=== PATIENT | male | born 1945 | race Caucasian/White ===

== ENCOUNTER 2016-12-04 05:15 | Emergency (ER) | payer MEDICARE, BC ==
[~2016-12-04] VITALS: Ht 175.3 cm; Wt 112.5 kg
[2016-12-04 05:28] VITALS: Ht 175.3 cm; Wt 112.5 kg
[2016-12-04] MEDS ORDERED: TETRACAINE 0.5% 4 ML OPH LEFT EYE STA (05:41)
[2016-12-04] MEDS ORDERED: FLUORESCEIN STRIP ONE (05:43)
--- NOTE | 2016-12-04 06:39 | ERD ---
ER Documentation Chief Complaint Date/Time DATE: 12/04/16 TIME: 06:39 Chief Complaint Pt reports "Something flew in my (L) eye last night" HPI 71-year-old male with a history of untreated hypertension presenting with left eye pain. He was crushing peanuts into a salad yesterday when he felt 1 of the pieces fly into his left eye. He did copious irrigation at home but continues to feel some eye pain and foreign body sensation. He denies any pain with ocular movement. Minimal blurry vision. No photophobia. He denies any headache, chest pain, shortness of breath, focal weakness or numbness. He was noted to have high blood pressure, but states it is because of the pain that his blood pressure is so elevated. ROS All systems reviewed and are negative except as per history of present illness. Medications Home Meds No Active Prescriptions or Reported Meds Allergies Allergies: Coded Allergies: No Known Drug Allergy (Unverified Allergy, Unknown, 12/04/16) PMhx/Soc History of Surgery: No Anesthesia Reaction: No Hx Neurological Disorder: No Hx Respiratory Disorders: No Hx Cardiac Disorders: No Hx Psychiatric Problems: No Hx Miscellaneous Medical Probl: Yes (Hypertension) Hx Alcohol Use: No Hx Substance Use: No Hx Tobacco Use: No FmHx Family History: No diabetes Physical Exam Vitals Vital Signs Date Time Temp Pulse Resp B/P Pulse Ox O2 Delivery O2 Flow Rate FiO2 12/04/16 05:28 98.3 80 18 261/139 95 Physical Exam Const: Well-appearing, no apparent distress Head: Atraumatic Eyes: PERRLA, EOMI, no proptosis. right eye normal. Left eye with clear tearing and conjunctival mild injection. Left eye Exam: Lac ducts/glands: No swelling Lids w/ evertion: Normal, no foreign body Conj/Omega: Injected, negative Fluorescein/Deo's Anterior Chamber: Clear Retina exam: No obvious abnormality ENT: Normal External Ears, Nose and Mouth. Neck: Full range of motion..~ No meningismus. Resp: Clear to auscultation bilaterally Cardio: Regular rate and rhythm, no murmurs Abd: Soft, non tender, non distended. Normal bowel sounds Skin: No petechiae or rashes Back: No midline or flank tenderness Ext: No cyanosis, or edema Neur: Awake and alert and oriented 3, cranial nerves intact, strength and sensations intact in all 4 extremities Psych: Normal Mood and Affect Results 24 hrs Current Medications Medications (Trade) Dose Ordered Sig/Latoya Route PRN Reason Start Time Stop Time Status Last Admin Dose Admin Tetracaine HCl (Tetracaine 0.5% Steri-Unit Jaimee) 4 drop NOW STAT LEFT EYE 12/04/16 05:41 12/04/16 05:42 DC 12/04/16 05:56 Procedures/MDM Labs were ordered but the patient refused to have any labs done. He did not want his blood pressure checked again. He is convinced that his blood pressure is elevated due to his pain. However he is well-appearing on exam and I doubt hypertensive emergency. With regard to his left eye, there is no evidence of corneal abrasion, ulcer, bacterial conjunctivitis, or foreign body. I do not suspect acute glaucoma or endophthalmitis. He copiously irrigated his eye at home so I do not think it is necessary at this time. He had relief of his pain with the tetracaine eyedrops. Home care for his eye was discussed. He was encouraged to follow-up with an preprint analyst or in the ED if his pain worsens or he develops any new symptoms. Departure Diagnosis: Primary Impression: Acute left eye pain Additional Impression: Asymptomatic hypertension Condition: Stable EKMOHIT BRAVO MD Dec 04, 2016 06:39
== END 2016-12-04 07:16 | disposition home or self-care (01) ==
LOC: E/R 05:15
DX: H57.12 Ocular pain, left eye (principal); I10 Essential (primary) hypertension; R40.2142 Coma scale, eyes open, spontaneous, at arrival to emergency department; R40.2252 Coma scale, best verbal response, oriented, at arrival to emergency department; R40.2362 Coma scale, best motor response, obeys commands, at arrival to emergency department
CPT/HCPCS: 99282

== ENCOUNTER 2016-12-29 13:56 | Emergency (ER) | payer MEDICARE, BC ==
[~2016-12-29] VITALS: Ht 175.3 cm; Wt 111.0 kg
[2016-12-29 14:00] VITALS: Ht 175.3 cm; Wt 111.0 kg
[2016-12-29] MEDS ORDERED: NEBIVOLOL 5 MG TAB PO STA (14:25)
--- NOTE | 2016-12-29 15:34 | RADRPT ---
PROCEDURE: US Lower extremity Venous. CLINICAL INDICATION: Bilateral lower extremity edema , pain TECHNIQUE: Multiple sonographic images of the bilateral lower extremity deep venous system was obt ained utilizing grayscale, color-flow, compressive sonography and doppler imaging with augmentation. The images were reviewed on a PACS workstation. COMPARISON: None. FINDINGS: There is normal compressibility and flow within the bilateral common femoral, femoral , posterior ti bial and popliteal veins. RPTAT: AA IMPRESSION: No sonographic evidence for deep venous thrombosis. .Juanpablo Robison MD, MD Date Time Electronically viewed and signed by .Juanpablo Robison MD, on 12/29/2016 15:34 .S/
--- NOTE | 2016-12-29 15:42 | ERD ---
ER Documentation Chief Complaint Date/Time DATE: 12/29/16 TIME: 14:53 Chief Complaint right hip pain since tuesday, no trauma HPI 71 year old male with history of hypertension presents complaining of right hip pain that started suddenly on Tuesday. Patient states pain is 0/10 and when he bears weight it is 8/10. Patient states he was seen at his PCP this morning and was diagnosed with HTN and given prescription for Bystolic 10mg but he has not picked up the prescription yet. He was referred here for bilateral venous ultrasound to rule out DVT, patient has bilateral swelling. No lower extremity pain. Denies fevers, shortness of breath, chest pain, headache. ROS All systems reviewed and are negative except as per history of present illness. Medications Home Meds No Active Prescriptions or Reported Meds Allergies Allergies: Coded Allergies: No Known Drug Allergy (Unverified Allergy, Unknown, 12/29/16) PMhx/Soc Medical and Surgical Hx: pt denies Surgical Hx, Unable to obtain History of Surgery: No Anesthesia Reaction: No Hx Neurological Disorder: No Hx Respiratory Disorders: No Hx Cardiac Disorders: No Hx Psychiatric Problems: No Hx Miscellaneous Medical Probl: Yes (Hypertension) Hx Alcohol Use: No Hx Substance Use: No Hx Tobacco Use: No Smoking Status: Never smoker Physical Exam Vitals Vital Signs Date Time Temp Pulse Resp B/P Pulse Ox O2 Delivery O2 Flow Rate FiO2 12/29/16 17:43 98.1 84 20 180/140 99 12/29/16 14:00 98.1 100 20 208/111 99 Physical Exam Const: WD/WN, NAD Head: Atraumatic Eyes: Normal Conjunctiva ENT: Normal External Ears, Nose and Mouth. Neck: Full range of motion..~ No meningismus. Resp: Clear to auscultation bilaterally Cardio: Regular rate and rhythm, no murmurs Abd: Soft, non tender, non distended. Normal bowel sounds Skin: No petechiae or rashes Back: No midline or flank tenderness Ext: No cyanosis, or edema, NTTP hip bilaterally Pain with right hip range of motion Bilateral lower extremity swelling Neur: Awake and alert Psych: Normal Mood and Affect Results 24 hrs Current Medications Medications (Trade) Dose Ordered Sig/Latoya Route PRN Reason Start Time Stop Time Status Last Admin Dose Admin Miscellaneous Medication (Bystolic) 10 mg ONCE STAT PO 12/29/16 14:25 12/29/16 14:28 DC 12/29/16 14:49 Morphine Sulfate (Ms Contin (Er)) 15 mg ONCE STAT PO 12/29/16 15:44 12/29/16 15:59 DC Ketorolac Tromethamine (Toradol) 30 mg ONCE STAT IM 12/29/16 17:09 12/29/16 17:10 DC 12/29/16 17:22 Procedures/MDM 71 year old male with history of hypertension presents complaining of right hip pain that started suddenly on Tuesday. Patient states pain is 0/10 and when he bears weight it is 8/10. Patient states he was seen at his PCP this morning and was diagnosed with HTN and given prescription for Bystolic 10mg but he has not picked up the prescription yet. He was referred here for bilateral venous ultrasound to rule out DVT. Venous ultrasound bilaterally was done and unremarkable for deep vein thrombosis. XR of the right hip showed degenerative changes, no evidence of fracture or dislocation. Patient's blood pressure was elevated at 208/111 but appears stable without evidence of hypertension emergency or urgency. I haven him Bystolic an reassessed him, BP continues to remain elevated. I wanted to do a dull work up and give him more anti- hypertensive medications however patient wanted to go home. I have discussed the risks of hypertensive urgency or emergency and , however patient wanted to sign AGAINST MEDICAL ADVICE. The patient was counseled about the risks of hypertension and urged to pursue outpatient monitoring and therapy within a week with their primary care physician. Patient understood and agreed Departure Diagnosis: Primary Impression: Hip pain Laterality: right Qualified Code: M25.551 - Pain of right hip joint Additional Impression: Asymptomatic hypertension Condition: Stable YEMI GALARZA PA-C Dec 29, 2016 15:42
[2016-12-29] MEDS ORDERED: morphine (ER) 15 MG TAB PO STA (15:44)
--- NOTE | 2016-12-29 16:20 | RADRPT ---
PROCEDURE: XR Right Hip. CLINICAL INDICATION: Right hip pain. TECHNIQUE: Two views. Frontal and lateral. COMPARISON: No prior studies are available for comparison. FINDINGS: There is no fracture or dislocation. The soft tissues are normal. There are degenerative changes with osteophytes arising from the joint margins. There is no joint s pace narrowing. There is no lytic or blastic lesion. There is no radiopaque foreign body. IMPRESSION: 1. Mild degenerative changes of the right hip. 2. Otherwise unremarkable study. RPTAT: QQ .Nixon Brush MD, MD Date Time Electronically viewed and signed by .Nixon Brush MD, MD on 12/29/2016 16:20 .R/
[2016-12-29] MEDS ORDERED: KETOROLAC 30 MG INJ IM STA (17:09)
[2016-12-29 17:43] VITALS: BP 180/140; PULSE 84; RESP 20; TEMP 98.1
== END 2016-12-29 17:49 | disposition home or self-care (01) ==
LOC: FTE 13:56
DX: M25.551 Pain in right hip (principal); I10 Essential (primary) hypertension
CPT/HCPCS: 73510; 93970; 96372; 99285; J1885

== ENCOUNTER 2017-01-04 11:07 | Emergency (ER) | payer MEDICARE, BC ==
[~2017-01-04] VITALS: Ht 175.3 cm; Wt 102.0 kg
[2017-01-04 11:09] VITALS: Ht 175.3 cm; Wt 102.0 kg
[2017-01-04] MEDS ORDERED: NICARDipine HCL 30 MG CAPSULE PO ONE (13:00)
[2017-01-04] MEDS ORDERED: hydrALAzine 20 MG INJ IV ONE (13:00)
[2017-01-04] MEDS ORDERED: HYDROCODONE/APAP (10/325) TAB PO ONE (13:00)
[2017-01-04] MEDS ORDERED: AMLO-218 PO (14:05)
[2017-01-04] MEDS ORDERED: OLME20TA20 PO (14:05)
--- NOTE | 2017-01-04 14:07 | ERD ---
ER Documentation Chief Complaint Date/Time DATE: 01/04/17 TIME: 14:05 Chief Complaint pt bib self with c/o elevated BP, started meds 1 wk ago, HPI This is a 71-year-old male who is at [facility] prior to arrival going to get an epidural however the procedure was aborted because his blood pressure was too high. Patient had seen a doctor a week ago with blood pressures in the 220s over 110's. The patient has been on Bistolic 20mg for the past week. Patient is completely asymptomatic with no headache no blurry vision no chest pain shortness of breath, or focal neurological complaints. ROS All systems reviewed and are negative except as per history of present illness. Medications Home Meds Active Scripts Olmesartan Medoxomil (Benicar) 20 Mg Tablet, 20 MG PO DAILY, #30 TAB Prov:YONG LIMAS A. DO 01/04/17 Amlodipine Besylate* (Norvasc*) 10 Mg Tablet, 10 MG PO DAILY, #30 TAB Prov:JEFFREY LIMASTJUANS A. DO 01/04/17 Allergies Allergies: Coded Allergies: No Known Drug Allergy (Unverified Allergy, Unknown, 12/29/16) PMhx/Soc Medical and Surgical Hx: pt denies Surgical Hx History of Surgery: No Anesthesia Reaction: No Hx Neurological Disorder: No Hx Respiratory Disorders: No Hx Cardiac Disorders: No Hx Psychiatric Problems: No Hx Miscellaneous Medical Probl: Yes (Hypertension, herniated lumbar disc, kidney stones) Hx Alcohol Use: Yes (quit 30 years ago) Hx Substance Use: Yes (quit 30 years ago) Hx Tobacco Use: No Smoking Status: Never smoker FmHx Family History: No coronary disease Physical Exam Vitals Vital Signs Date Time Temp Pulse Resp B/P Pulse Ox O2 Delivery O2 Flow Rate FiO2 01/04/17 14:16 166/77 01/04/17 14:15 168/78 01/04/17 11:09 97.3 84 18 236/114 98 Physical Exam Const: Well-developed, well-nourished Head: Atraumatic, normocephalic Eyes: Normal Conjunctiva, PERRLA, EOMI, normal sclera, no nystagmus ENT: Normal External Ears, Nose and Mouth, moist mucus membranes. Neck: Full range of motion. No meningismus, no lymphadenopathy. Resp: Clear to auscultation bilaterally, no wheezing, rhonchi, rales Cardio: Regular rate and rhythm, no murmurs, S1 S2 present Abd: Soft, non tender x 4, non distended. Normal bowel sounds, no guarding or rebound, no pulsitile abdominal masses or bruits Skin: No petechiae or rashes, no ecchymosis , no maculopapular rash Back: No midline or flank tenderness Ext: No cyanosis, or edema, FROM x 4, normal inspection, neurovascularly intact x 4 Neur: Awake and alert, STR 5/5 x 4, sensation intact x 4, no focal findings, cerebellum intact Psych: Normal Mood and Affect Results 24 hrs Current Medications Medications (Trade) Dose Ordered Sig/Latoya Route PRN Reason Start Time Stop Time Status Last Admin Dose Admin Nicardipine HCl (Cardene) 30 mg ONCE ONCE PO 01/04/17 13:00 01/04/17 13:01 DC 01/04/17 13:47 Hydralazine HCl (Apresoline) 10 mg ONCE ONCE IV 01/04/17 13:00 01/04/17 13:01 DC 01/04/17 13:47 Acetaminophen/ Hydrocodone Bitart ([place] (10/325)) 1 tab ONCE ONCE PO 01/04/17 13:00 01/04/17 13:01 DC 01/04/17 13:47 Procedures/MDM Patient was given IV hydralazine Cardene p.o. to lower his blood pressure. We will discharge home on Norvasc and Benicar and follow-up with his primary Repeat blood pressure is 166/77 Departure Diagnosis: Primary Impression: Hypertension Hypertension type: essential hypertension Qualified Code: I10 - Essential hypertension Condition: Stable Patient Instructions: High Blood Pressure (Hypertension) Referrals: DOCTOR,NOT ON STAFF (PCP) DOLLY LIMA DO Jan 04, 2017 14:07
[2017-01-04 14:16] VITALS: BP 166/77
[2017-01-04] MEDS ORDERED: NEBI10TA2 PO (14:24)
== END 2017-01-04 14:43 | disposition home or self-care (01) ==
LOC: E/R 11:07
DX: I10 Essential (primary) hypertension (principal)
CPT/HCPCS: 96374; 99284; J0360

== ENCOUNTER 2018-05-29 05:53 | Inpatient (IN) | payer MEDICARE, BC ==
[~2018-05-29] VITALS: Ht 175.3 cm; Wt 108.0 kg
[2018-05-29] VITALS (28 sets, daily range): BP systolic 90–163; BP diastolic 51–81; PULSE 68–111; RESP 12–21; Ht 175.3 cm; Wt 108.0 kg
[~2018-05-29 05:53] MED LIST: AMLO-218 PO; CEFAZOLIN 2 GM/50 ML (PMX) 50 ML IVPB ONE; LACTATED RINGER'S 1,000 ML IV* ONE; NEBI10TA2 PO; OLME20TA20 PO
--- NOTE | 2018-05-29 06:52 | PREAC ---
Date/Time of Note Date/Time of Note DATE: 05/29/18 TIME: 06:50 Anesthesia Eval and Record Evaluation Time Pre-Procedure Interview DATE: 05/29/18 TIME: 06:50 Age 72 Sex male NPO: 8 hrs Preoperative diagnosis spinal stenosis Planned procedure L1-L4 decompressive lumbar microdiscectomy and right L4-L5 microdiscectomy Past Medical History Past Medical History: Includes Cardio: HTN, Dyslipidemia Surgery & Anesthesia Issues No known issue Meds Anticoagulation: No Beta Catie within 24 hr: Yes Reason Beta Catie not given: Bradycarida, Hypotension Active Scripts Olmesartan Medoxomil (Benicar) 20 Mg Tablet, 20 MG PO DAILY, #30 TAB Prov:LEKKOS,APOSTOLOS A. DO 01/04/17 Amlodipine Besylate* (Norvasc*) 10 Mg Tablet, 10 MG PO DAILY, #30 TAB Prov:LEKKOS,APOSTOLOS A. DO 01/04/17 Reported Medications Nebivolol Hcl* (Bystolic*) 10 Mg Tablet, 10 MG PO DAILY, #30 TAB 01/04/17 Meds reviewed: Yes Allergies Coded Allergies: No Known Drug Allergy (Unverified Allergy, Unknown, 12/29/16) Allergies Reviewed: Yes Labs/Studies Labs Reviewed: Reviewed by anesthesiologist Result Diagram: 05/25/18 1111 05/25/18 1111 Blood Bank Test 05/29/18 05:59 Blood Product Summary Counts test: Negative Pre-procedure Exam Last vitals Vital Signs Date Temp Pulse Resp B/P (MAP) Pulse Ox O2 O2 Flow FiO2 Time Delivery Rate 05/29/18 97.9 94 16 150/73 97 Room Air 06:37 (98) Airway: Adequate mouth opening, Adequate thyromental dist Mallampati: Mallampati II Teeth: Normal Lung: Normal Heart: Normal ASA Physical Status ASA physical status: 2 Emergency: None Planned Anesthetic General/MAC: ETT Planned Pain Management Parenteral pain med Pre-operative Attestations Prior to commencing anesthesia and surgery, the patient was re-evaluated, there was verification of: *The patient's identity *The results of appropriate recent lab work and preoperative vital signs *The above evaluation not changing prior to induction *Anesthetic plan, risk benefits, alternative and complications discussed with patient/family; questions answered; patient/family understands, accepts and wishes to proceed. MANJULA FARMER MD May 29, 2018 06:52
[2018-05-29] MEDS ORDERED: SUCCINYLCHOLINE CHLORIDE 100 MG/5 ML SYG IV ONE ×2 (06:57→07:00)
[2018-05-29] MEDS ORDERED: PROPOFOL 20 ML ONE (06:57)
[2018-05-29] MEDS ORDERED: MIDAZOLAM 1 MG/ML 2 ML INJ ONE (06:58)
[2018-05-29] MEDS ORDERED: ROCURONIUM 50 MG INJ ONE ×2 (06:58→07:00)
[2018-05-29] MEDS ORDERED: LIDOCAINE 2% (SDV) 5 ML INJ ONE (06:58)
[2018-05-29] MEDS ORDERED: SEVOFLURANE 15 MIN ONE (07:00)
[2018-05-29] MEDS ORDERED: NEOSTIGMINE 3 MG/3 ML SYRINGE ONE (07:00)
[2018-05-29] MEDS ORDERED: GLYCOPYRROLATE 0.4 MG INJ ONE (07:00)
--- NOTE | 2018-05-29 07:02 | HPN ---
Date/Time of Note Date/Time of Note DATE: 05/29/18 TIME: 07:02 Interval H&P Admission Note Pt. seen H&P reviewed: No system changes VIOLETA COOPER MD May 29, 2018 07:02
[2018-05-29] MEDS ORDERED: FAMOTIDINE 20 MG INJ ONE (07:19)
[2018-05-29] MEDS ORDERED: DEXAMETHASONE 4 MG/ML 5 ML INJ ONE (07:19)
[2018-05-29] MEDS ORDERED: ONDANSETRON 4 MG INJ ONE (07:19)
[2018-05-29] MEDS ORDERED: THROMBIN 5000 UNIT VIAL ONE (07:31)
[2018-05-29] MEDS ORDERED: GELATIN SIZE 100 SPONGE ONE (07:31)
[2018-05-29] MEDS ORDERED: BUPIVACAINE 0.25% (MPF) 30 ML INJ ONE (07:31)
[2018-05-29] MEDS ORDERED: EPHEDrine SULFATE 50 MG/5 ML SYG ONE (07:44)
[2018-05-29] MEDS ORDERED: HYDROmorphONE 2 MG/ML SYG ONE (08:42)
[2018-05-29] MEDS ORDERED: POLYMYXIN/BACITRACIN 1L IRRIG IRR ONE (10:27)
[2018-05-29] MEDS ORDERED: POLYMYXIN/BACITRACIN 1L IRRIG ONE (10:30)
--- NOTE | 2018-05-29 11:03 | PAC ---
Date/Time of Note Date/Time of Note DATE: 05/29/18 TIME: 11:02 Post-Anesthesia Notes Post-Anesthesia Note Last documented vital signs Vital Signs Date Temp Pulse Resp B/P (MAP) Pulse Ox O2 O2 Flow FiO2 Time Delivery Rate 05/29/18 98.1 10:52 05/29/18 94 16 150/73 97 Room Air 06:37 (98) Activity: WNL Respiratory function: WNL Cardiovascular function: WNL Mental status: Baseline Pain reasonably controlled: Yes Hydration appropriate: Yes Nausea/Vomiting absent: Yes Comments BP: 103/61 HR: 76 RR: 14 T: 98.1 SaO2: 96% MANJULA FARMER MD May 29, 2018 11:03
[2018-05-29] MEDS: DEXTROSE 5%-0.45% NACL 1,000 ML IV SCH ×2 (11:16→20:18)
--- NOTE | 2018-05-29 11:23 | SIPON ---
Date/Time of Note Date/Time of Note DATE: 05/29/18 TIME: 11:20 Operative Report Preoperative Diagnosis Stenosis L1-4 with HNP L4-5 right Postoperative Diagnosis same Operation/Procedure Performed Central decompressive laminectomy at L1 Central decompressive laminectomy at L2 Central decompressive laminectomy at L3 Central decompressive laminectomy at L4 Partial central decompressive laminectomy at L5 (superiorly) Microdiscectomy L4-5 on the right Medial facetectomy and foraminotomy L1-2 L2-3 L3-4 and L4-5 bilaterally Cosmetic wound closure (14 cm) Lateral localizing lumbar radiographs (2) Intraoperative nerve monitoring (4 hours) Surgeon see signature line assistant chief train dispatcher Jacquelyn Horne PA-C Anesthesia: general Estimated blood loss: 100 - 150 ml's Transfusion Required none Specimen Spinous processes of L1-L2-L3 and L4 Herniated disc L4-5 on the right Grafts/Implants none Complications none VIOLETA COOPER MD May 29, 2018 11:23
[2018-05-29] MEDS ORDERED: DIAZEPAM 5 MG/ML SYG IM PRN (11:30)
[2018-05-29] MEDS ORDERED: HYDROmorphONE 0.2 MG/ML PCA IV SCH (11:30)
[2018-05-29] MEDS ORDERED: DIAZEPAM 5 MG TAB PO PRN (11:30)
[2018-05-29] MEDS ORDERED: ACETAMINOPHEN 325 MG TAB PO PRN (11:30)
[2018-05-29] MEDS ORDERED: ZOLPIDEM 5 MG TAB PO PRN (11:30)
[2018-05-29] MEDS ORDERED: TRIMETHOBENZAMIDE 100 MG/ML VIAL IM PRN (11:30)
[2018-05-29] MEDS ORDERED: AL HYDROX/MG HYDROX/SIMETH 30 ML CUP PO PRN (11:30)
[2018-05-29] MEDS ORDERED: BETHANECHOL 25 MG TAB PO PRN (11:30)
[2018-05-29] MEDS ORDERED: NALOXONE (0.4 MG/ML) INJ IV PRN (11:30)
[2018-05-29] MEDS ORDERED: CEPASTAT LOZENGE MT PRN (11:30)
[2018-05-29] MEDS ORDERED: PROCHLORPERAZINE 10 MG TAB PO PRN (11:30)
[2018-05-29] MEDS ORDERED: HYDROCODONE/APAP (5/325) TAB PO PRN ×2 (11:30)
[2018-05-29] MEDS ORDERED: DIPHENHYDRAMINE 50 MG CAP PO PRN (11:30)
[2018-05-29] MEDS ORDERED: NACL 0.9% 3 ML SYG IV SCH (11:30)
[2018-05-29] MEDS: CEFAZOLIN 1 GM/50 ML (PMX) 50 ML IVPB SCH ×2 (11:43→17:30)
[2018-05-29] MEDS: ONDANSETRON 4 MG INJ IV PRN ×2 (11:52→20:19)
[2018-05-29] MEDS ORDERED: DIPHENHYDRAMINE 50 MG INJ IV PRN (12:00)
[2018-05-29] MEDS ORDERED: MEPERIDINE 25 MG INJ IV PRN (12:00)
[2018-05-29] MEDS ORDERED: PROCHLORPERAZINE 10 MG INJ IV PRN (12:00)
[2018-05-29] MEDS ORDERED: NEBIVOLOL 5 MG TAB PO SCH (12:00)
[2018-05-29] MEDS ORDERED: HYDROmorphONE 1 MG/5 ML IV SYRINGE IV PRN (12:00)
[2018-05-29] MEDS ORDERED: FENTAnyl 50 MCG/ML VIAL IV PRN (12:00)
[2018-05-29] MEDS ORDERED: ONDANSETRON 4 MG INJ IV PRN (12:00)
--- NOTE | 2018-05-29 13:14 | OPR ---
DATE OF OPERATION: 05/29/2018 PREOPERATIVE DIAGNOSES: 1. Multilevel lumbar spinal stenosis from L1 to L4. 2. Herniated disk L4 to L5 on the right. POSTOPERATIVE DIAGNOSES: 1. Multilevel lumbar spinal stenosis from L1 to L4. 2. Herniated disk L4 to L5 on the right. OPERATIVE PROCEDURES PERFORMED: 1. Central decompressive laminectomy at L1. 2. Central decompressive laminectomy at L2. 3. Central decompressive laminectomy at L3. 4. Central decompressive laminectomy at L4. 5. Partial central decompression laminectomy at L5 (superiorly). 6. Microdiskectomy, L4 to L5 on the right. 7. Medial facetectomy, foraminotomy, L1 to L2, L2 to L3, L3 to L4, L4 to L5 bilaterally. 8. Cosmetic wound closure (14 cm). 9. Lateral localized lumbar radiographs (2). 10. Intraoperative nerve monitoring (4 hours). SURGEON: Eric Jewell MD NETWORK PRICING CONSULTANT: Jacquelyn Horne PA-C ANESTHESIA: General endotracheal. ANESTHESIOLOGIST: Ida Patel MD ESTIMATED BLOOD LOSS: 100 mL - none replaced. DRAINS: Two medium Hemovac drains employed. COMPLICATIONS: None. PERTINENT HISTORY AND PHYSICAL: This is a 72-year-old male with severe back and lower extremity comp laints right greater than left, which have been unrelieved by conservative management. He has underg one a number of diagnostic studies including an MRI of the lumbar spine, which demonstrated multileve l spinal stenosis and herniation of the L4 to L5 disk centrally and to the right. Treatment options were discussed with the patient, he elected to proceed with surgery. OPERATIVE FINDINGS AT SURGERY: Multilevel severe stenosis from L1 to L4 was confirmed. A small to m oderate right paracentral/foraminal herniation of the L4 to L5 disk was also confirmed. The baseline intraoperative nerve monitoring revealed a decrease in the left L3 potential of 20%, the right L3 po tential of 40%, the L4 potentials bilaterally of 40%, the L5 potential on left of 30%, the L5 potenti al on the right of 50% and the S1 potentials bilaterally of 10%. These all returned to normal at the completion of the surgery. OPERATIVE PROCEDURE IN DETAILS: With the patient in supine position after satisfactory induction of general endotracheal anesthesia by Dr. Patel, the patient was turned to the prone kneeling position on the Raymond frame. All pressure points were carefully padded. The back was prepped and draped in usual sterile fashion. Athrombic pumps were applied to the legs below the knees to prevent venous st asis during and after procedure. An indwelling Tello catheter was also placed preoperatively to faci litate bladder drainage during and after procedure. Two spinal needles were placed next to what was felt to be the L1 and L4 spinous processes, lateral roentgenogram was taken to confirm anatomic local ization. A 14 cm incision was then carried out midline from L1 to L5 through skin and subcutaneous t issue to deep fascia after skin was infiltrated with 0.25% Marcaine without epinephrine for postopera tive analgesia. Superficial retractors were placed and hemostasis was secured with electrocautery. The fascia was incised in midline with a hot knife and a bilateral subperiosteal dissection was dennise ed out from L1 to L4. Deep retractors were placed and deep hemostasis was secured with electrocauter y. A second intraoperative radiograph was taken with Delonte clamps placed in what was felt to be the spinous process of L1, L2, L3 and L4. This was confirmed with second x-ray. A central decompressiv e laminectomy at L4, L3, L2 and L1 was then carried out using a Francisca right-angle bone rongeur, Lek sell rongeur, Kerrison punches and curettes. Ligamentum flavum was incised with sharp dissection. T he operating microscope was then moved into place. A medial facetectomy and foraminotomy was then ac complished at L1 to L2, L2 to L3, L3 to L4 and L4 to L5 bilaterally. At this point, there was still some stenosis at the upper margin of the L5 lamina and in order to fully decompress the L5 nerve root s throughout their intraspinal course, the upper part of lamina of L5 had to be removed bilaterally a s well as the superior articular facet of L5. The epidural hemostasis was secured with bipolar elect rocautery on low setting. Attention was then turned to the L4 to L5 disk where the L5 nerve root was mobilized medially and protected with Ameya nerve root retractor using microdissection technique. This revealed a herniation of the L4 to L5 disk. A 15-blade knife was used to cut a rectangular wi ndow in the annulus and posterior longitudinal ligament and multiple degenerative disk fragments were harvested with pituitary rongeurs and sent to laboratory for pathologic study. Additional fragments were harvested using William curettes. A thorough search of the floor canal was made with an arthro scopic probe. No additional fragments were encountered. The anesthesiologist then asked to perform a Valsalva maneuver at 40 mmHg and no spinal fluid leak was noted. The wound was then closed in laye rs over 2 medium Hemovac drains, one below the fascia, one above the fascia, using #1 Stratafix sutur es on deep paralumbar musculature and deep fascia of back, 2-0 Stratafix sutures in subcutaneous tiss ue and a 4-0 Vicryl subcuticular cosmetic closing suture on the skin. Dermabond and sterile compress robyn dressings were applied. The patient having tolerated procedure well was then turned to the supin e position onto his bed and extubated by Dr. Patel. He was transported to the recovery room in satisf actory condition. At the conclusion of procedure, sponge, instrument and needle counts were all roberto ect. NEED FOR BACK END WEB DEVELOPER: During this spinal surgical procedure, my histology assistant was used to retract and protect the spinal nerves and dural sac. My histology assistant also employed the suction catheters to carlos shonna blood from the surgical field to improve visualization of the neural structures. The histology assistant was medically necessary to facilitate the completion of the surgery in a safe and expeditious manner. State of [place] regulations, as well as hospital bylaws, preclude the use of non-licensed health care personnel such as operating room technicians, to perform these functions. Throughout the procedure, neural monitoring was carried out by [facility] including EMG, SSEP a nd MEP monitoring of the L3, L4, L5 and S1 nerve roots bilaterally along with spinal cord potentials. These are interpreted in real time by Dr. Minor Mix. Dictated By: ERIC JEWELL MD TM/NTS Conf#: [id number] DID#: [id number] CC: NICKO MAYORGA MD;*End*
--- NOTE | 2018-05-29 14:04 | CONS ---
DATE OF ADMISSION: 05/29/2018 DATE OF CONSULTATION: 05/29/2018 TYPE OF CONSULTATION: Postoperative internal medicine. The patient had surgery with Dr. Eric Jewell on 05/29/2018. REASON FOR CONSULTATION: Consultation requested by Dr. Eric Jewell for postoperative medical evalu ation and management of a 72-year-old gentleman who just underwent lumbar spine surgery. Thank you, Dr. Jewell, for allowing us to participate in the care of this patient. HISTORY OF PRESENT ILLNESS: Dung Richardson, a 72-year-old gentleman with long issues with his back richter s conservative treatment including epidurals and other appropriate measures without relief and travon camargo was admitted for more definitive surgery having multi-level laminectomies done at L1, L2, L3 and L4 hopefully with relief of symptoms. In terms of his relevant medical issues other than his back, t he patient is being treated for hypertension. MEDICATIONS: Currently, he is on: 1. Losartan 100 mg a day. 2. Amlodipine 10 mg a day. He has been on different preparations; however those are the 2 he has been taking and variety of othe r p.r.n. medications for symptoms. REVIEW OF SYSTEMS: Other than that, he has been generally healthy PAST MEDICAL HISTORY: Noncontributory. PAST SURGICAL HISTORY: Noncontributory. FAMILY HISTORY: Noncontributory. PHYSICAL EXAMINATION: VITAL SIGNS: Blood pressure of 149/80, pulse 75 and regular, respirations 18, temperature 97.9, O2 s aturation 95% with O2. HEENT: Unremarkable. LUNGS: Clear. HEART: Reveals a regular rhythm without any significant murmurs, rubs or gallops. ABDOMEN: Soft. Good bowel sounds are noted. EXTREMITIES: Unremarkable. IMPRESSION: 1. Status post lumbar spine laminectomy for lumbar stenosis and lumbar disk disease. 2. Hypertension. 3. Stable health. DISCUSSION: Plan is to follow the patient along with you. I have reordered his preoperative medicin es and we will follow him along with you during his stay at [facility]. Thank you again, Dr. Jewell, for allowing us to participate in the care of this patient. Dictated By: NICKO MAYORGA MD SS/ANIBAL Conf#: [id number] DID#: [id number] CC: ERIC JEWELL MD;*[facility]*
[2018-05-29] MEDS: RANITIDINE 150 MG TAB PO SCH (20:18)
[2018-05-30] VITALS: BP 158/79; PULSE 109; RESP 19
[2018-05-30] MEDS: CEFAZOLIN 1 GM/50 ML (PMX) 50 ML IVPB SCH ×2 (00:37→06:47)
[2018-05-30 04:30] VITALS: BP 179/84; PULSE 105; RESP 18
[2018-05-30] MEDS: ONDANSETRON 4 MG INJ IV PRN (06:48)
--- NOTE | 2018-05-30 06:58 | PN ---
Date/Time of Note Date/Time of Note DATE: 05/30/18 TIME: 06:56 Assessment/Plan Lines/Catheters IV Catheter Type (from Nrs): Peripheral IV Tello in Place (from Nrs): Yes Subjective 24 Hr Interval Summary The patient is postop day #1 following a multilevel decompressive laminectomy from L1 to the upper part of L5. He is resting comfortably in bed. Neurovascular structures are intact distally. He is afebrile. A.m. lab work is unremarkable. His Hemovac had 135 cc of output, and will be left in place. A Tello catheter is in place. He will be mobilized as tolerated by physical therapy, until independent with ambulation. I will discontinue his Tello cat heter this morning. We'll check his Hemovac output at noon. Exam/Review of Systems Vital Signs Vitals Vital Signs Date Temp Pulse Resp B/P (MAP) Pulse Ox O2 O2 Flow FiO2 Time Delivery Rate 05/30/18 19 05:00 05/30/18 98.0 109 158/79 99 Nasal 00:00 (105) Cannula 05/29/18 2.0 20:00 Intake and Output 05/29/18 05/29/18 05/30/18 1515:00 23:00 07:00 IntakeIntake Total 1750 ml 50 ml 50 ml OutputOutput Total 450 ml 800 ml 1250 ml BalanceBalance 1300 ml -750 ml -1200 ml Results Result Diagram: 05/30/180 05/30/18 0430 VIOLETA COOPER MD May 30, 2018 06:58
[2018-05-30 07:18] VITALS: BP 168/72; PULSE 98; RESP 19
--- NOTE | 2018-05-30 07:55 | CONS ---
Date/Time of Note Date/Time of Note DATE: 05/30/18 TIME: 07:50 Consult Date/Type/Reason Admit Date/Time May 29, 2018 at 05:53 Initial Consult Date 05/29/2018 Type of Consultation: internal medicine Reason for Consultation post-op f/u and medical management Requesting Provider: VIOLETA COOPER MD Subjective had trouble sleeping pain not a factor Objective Vital Signs Date Temp Pulse Resp B/P (MAP) Pulse Ox O2 O2 Flow FiO2 Time Delivery Rate 05/30/18 98.4 98 19 168/72 98 07:18 (104) 05/30/18 Nasal 00:00 Cannula 05/29/18 2.0 20:00 Intake and Output 05/29/18 05/29/18 05/30/18 1515:00 23:00 07:00 IntakeIntake Total 1750 ml 50 ml 50 ml OutputOutput Total 450 ml 800 ml 1385 ml BalanceBalance 1300 ml -750 ml -1335 ml Exam vital signs stable B.P> systolic elevated HEENT negative lungs clear heart regular rhythm abdomen soft Results/Medications Result Diagram: 05/30/18 0430 05/30/18 0430 Results 24 hrs Laboratory Tests Test 05/30/18 04:30 05/30/18 07:40 Hemoglobin 12.0 L Hematocrit 37.1 L Sodium Level 142 Potassium Level 3.9 Chloride Level 104 Carbon Dioxide Level 28 Anion Gap 10 Blood Urea Nitrogen 14 Creatinine 0.89 Est Glomerular Filtrat Rate mL/min Glucose Level 128 Calcium Level 8.5 Lab Scanned Report REFERENCE LAB Medications Current Medications Dextrose/Sodium Chloride 1,000 ml @ 100 mls/hr Q10H IV Last administered on 05/29/18at 20:18; Admin Dose 100 MLS/HR; Start 05/29/18 at 11:16 Acetaminophen/ Hydrocodone Bitart ([place] (5/325)) 1 tab Q4H PRN PO PAIN LEVEL 1-5; Start 05/29/18 at 11:30 Acetaminophen/ Hydrocodone Bitart ([place] (5/325)) 2 tab Q4H PRN PO PAIN LEVEL 6-10; Start 05/29/18 at 11:30 Zolpidem Tartrate (Ambien) 5 mg HS PRN PO INSOMNIA Last administered on 05/29/18at 22:28; Admin Dose 5 MG; Start 05/29/18 at 11:30 Prochlorperazine (Compazine) 10 mg Q4H PRN PO NAUSEA AND/OR VOMITING; Start 05/29/18 at 11:30 Trimethobenzamide HCl (Tigan) 200 mg Q4H PRN IM NAUSEA AND/OR VOMITING; Start 05/29/18 at 11:30 Ondansetron HCl (Zofran Inj) 4 mg Q6H PRN IV NAUSEA AND/OR VOMITING Last administered on 05/30/18at 06:48; Admin Dose 4 MG; Start 05/29/18 at 11:30 Al Hydrox/Mg Hydrox/Simethicone (Mag-Al Plus) 15 ml Q4H PRN PO CONSTIPATION; Start 05/29/18 at 11:30 Docusate Sodium (Colace) 100 mg BID PO ; Start 05/30/18 at 09:00 Acetaminophen (Tylenol Tab) 650 mg Q4H PRN PO HEADACHE; Start 05/29/18 at 11:30 Ascorbic Acid (Vitamin C) 1,000 mg BID PO ; Start 05/30/18 at 09:00 Ferrous Sulfate (Ferrous Sulfate (Ec)) 325 mg TID PO ; Start 05/30/18 at 09:00 Ranitidine HCl (Zantac) 150 mg BID PO Last administered on 05/29/18at 20:18; A dmin Dose 150 MG; Start 05/29/18 at 21:00 Diazepam (Valium) 5 mg Q4H PRN PO MUSCLE SPASMS; Start 05/29/18 at 11:30 Diazepam (Valium) 5 mg Q4H PRN IM MUSCLE SPASMS; Start 05/29/18 at 11:30 Phenol (Cepastat Lozenge) 1 lozenge PRN PRN MT SORE THROAT; Start 05/29/18 at 11:30 Bethanechol Chloride (Urecholine) 25 mg PRN PRN PO UNABLE TO VOID; Start 05/29/18 at 11:30 Diphenhydramine HCl (Benadryl) 50 mg Q6H PRN PO PRURITUS; Start 05/29/18 at 11:30 IV Flush (NS 3 ml) 3 ml PER PROTOCOL IV ; Start 05/29/18 at 11:30 Hydromorphone HCl (Dilaudid ETL LEAD) Q4PCA IV Last administered on 05/29/18at 11:48; Admin Dose 6 MG; Start 05/29/18 at 11:30 Naloxone HCl (Narcan) 0.2 mg Q2M PRN IV OPIATE OVERDOSE; Start 05/29/18 at 11:30 Losartan Potassium (Cozaar) 100 mg DAILY PO ; Start 05/30/18 at 09:00 Amlodipine Besylate (Norvasc) 10 mg DAILY PO ; Start 05/30/18 at 09:00 Assessment/Plan Chief Complaint/Hosp Course will try to ambul;ate today if cleared may go home today patient will also get his norvasc todsy hopefully that will lower his blood pressure Additional Assessment/Plan plan per will follow thank you NICKO Ziegler MD May 30, 2018 07:55
[2018-05-30] MEDS ORDERED: BETHANECHOL 25 MG TAB PO PRN (08:00)
[2018-05-30] MEDS: RANITIDINE 150 MG TAB PO SCH (08:31)
[2018-05-30] MEDS: DOCUSATE SODIUM 100 MG CAP PO SCH ×2 (08:32→13:12)
[2018-05-30] MEDS: FERROUS SULFATE (EC) 325 MG TAB PO SCH ×2 (08:44→13:00)
[2018-05-30] MEDS ORDERED: NON-FORMULARY/PATIENT OWN MED (Olmesartan Medoxomil (Benicar) 20 MG) PO SCH (09:00)
[2018-05-30] MEDS ORDERED: LOSARTAN 50 MG TAB PO SCH (09:00)
[2018-05-30] MEDS ORDERED: AMLODIPINE 10 MG TAB PO SCH ×2 (09:00)
[2018-05-30] MEDS ORDERED: ASCORBIC ACID 500 MG TAB PO SCH (09:00)
[2018-05-30 14:23] VITALS: BP 162/72; PULSE 94; RESP 19
--- NOTE | 2018-06-05 09:55 | DS ---
Date/Time of Note Date/Time of Note DATE: 06/05/18 TIME: 09:54 Discharge Summary Admission/Discharge Info Admit Date/Time May 29, 2018 at 05:53 Discharge Date/Time May 30, 2018 at 16:15 Discharge Diagnosis 1. Multilevel lumbar spinal stenosis from L1 to L4. 2. Herniated disk L4 to L5 on the right. Patient Condition: Good Hospital Course Patient did well postoperatively. Diet and activity were advanced as tolerated. Pain was well controlled. He was discharged to home in safe condition on postop day #1 with strict discharge and follow-up instructions. Home Meds Active Scripts Olmesartan Medoxomil (Benicar) 20 Mg Tablet, 20 MG PO DAILY, #30 TAB Prov:DOLLY LIMA DO 01/04/17 Amlodipine Besylate* (Norvasc*) 10 Mg Tablet, 10 MG PO DAILY, #30 TAB Prov:DOLLY LIMA DO 01/04/17 Reported Medications Nebivolol Hcl* (Bystolic*) 10 Mg Tablet, 10 MG PO DAILY, #30 TAB 01/04/17 Follow-up Plan Follow up with Dr. Jewell in 1-2 weeks. Primary Care Provider Not On Staff Doctor CAROLINA MARTINEZ Jun 05, 2018 09:55
== END 2018-05-30 16:15 | disposition home or self-care (01) | DRG 520 ==
LOC: REC 05:53 → MS1 12:15
PROVIDERS: ADMIT Orthopaedic Surgery; ATTEND Orthopaedic Surgery
PROC: 01NB0ZZ Release Lumbar Nerve, Open Approach (ICD-10-PCS; 2018-05-29)
PROC: 4A11X4G Monitoring of Peripheral Nervous Electrical Activity, Intraoperative, External Approach (ICD-10-PCS; 2018-05-29)
PROC: 0SB20ZZ Excision of Lumbar Vertebral Disc, Open Approach (ICD-10-PCS; principal; 2018-05-29 07:00)
DX: M51.26 Other intervertebral disc displacement, lumbar region (principal); M48.061 Spinal stenosis, lumbar region without neurogenic claudication; I10 Essential (primary) hypertension
CPT/HCPCS: 72020; 80048; 80053; 81001; 85014; 85018; 85025; 85610; 85651; 85730; 86850; 86900; 86901; 86920; 87086; 88304; 97116; 97161; 97530; J0690; J1100; J1170; J2250; J2405; J2710; J3010; J7042; J7120